=== PATIENT | male | born 1965 | race African-American/Black ===

== ENCOUNTER 2016-11-30 09:19 | Emergency (ER) | payer BC ==
[2016-11-30 09:26] VITALS: BMI 27.8
[2016-11-30 09:30] VITALS: RESP 18; TEMP 98.1; O2SAT 98
[2016-11-30] MEDS ORDERED: Naproxen 550 mg Tab PO STA (09:42)
--- NOTE | 2016-11-30 09:55 | ED PDOC ---
Arrival/HPI - General Historian: Patient - History of Present Illness Time/Duration: 1-3 hours Symptom Onset: Sudden Symptom Course: Worsening Quality: Aching Context: Work - General Chief Complaint: Lower Extremity Problem/Injury Time Seen by Provider: 11/30/16 09:20 - History of Present Illness Narrative History of Present Illness (Text): 11/30/16 09:51 Patient is a 51 y/o with pmh of hld presenting with right distal quadriceps pain. Patient states he has chronic right knee pain, had x-ray in the past but never followed up for result, saw orthopedic was told he didn't need surgery. Patient states he is active, exercised this morning. 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 Patient states he all the sudden started to limp. Denies hearing any popping sound, denies fever, chills, n/v/d, denies cp or sob, denies prior history of lower extremities trauma. Patient states he recently started playing basketball, and played yesterday, but denies pain during the game. (Liz Stein) Past Medical History - Provider Review Nursing Documentation Reviewed: Yes - Travel History Have you recently traveled outside [place] w/in the past 3 mons?: No - Cardiac Hx Cardiac Disorders: Yes - Psychiatric Hx Substance Use: No Family/Social History - Physician Review Nursing Documentation Reviewed: Yes Family/Social History: No Known Family HX Smoking Status: Never Smoked Hx Alcohol Use: No Hx Substance Use: No Allergies/Home Meds Allergies/Adverse Reactions: Allergies No Known Allergies Allergy (Verified 11/30/16 09:25) Home Medications: Home Meds Medication Instructions Recorded Confirmed No Known Home Med 11/30/16 11/30/16 Review of Systems - Review of Systems Constitutional: Normal Eyes: Normal ENT: Normal Respiratory: Normal Cardiovascular: Normal Gastrointestinal: Normal Genitourinary Male: Normal Musculoskeletal: Other (right distal quad pain. ) Skin: Normal Neurological: Normal Endocrine: Normal Hemo/Lymphatic: Normal Psychiatric: Normal Physical Exam Vital Signs Reviewed: Yes Temperature: Afebrile Blood Pressure: Normal Pulse: Regular Respiratory Rate: Normal Appearance: Positive for: Well-Appearing, Non-Toxic, Comfortable Pain Distress: Moderate Mental Status: Positive for: Alert and Oriented X 3 - Systems Exam Head: Present: Atraumatic, Normocephalic Mouth: Present: Moist Mucous Membranes Neck: Present: Normal Range of Motion, Trachea Midline. No: MIDLINE TENDERNESS , Paraspinal Tenderness Respiratory/Chest: Present: Clear to Auscultation, Good Air Exchange. No: Respiratory Distress, Accessory Muscle Use, Wheezes, Rales, Retracting, Rhonchi , Tachypneic Cardiovascular: Present: Regular Rate and Rhythm, Normal S1, S2. No: Murmurs, Tachycardic, Bradycardic, Rub, Gallop Abdomen: Present: Tenderness, Normal Bowel Sounds. No: Distention Upper Extremity: Present: Normal Inspection. No: Cyanosis, Edema Lower Extremity: Present: NORMAL PULSES, Tenderness (insertion point of the right vastus ), Swelling (above the patella.), Deformity (atrophied quad muscles), Other (right knee and distal thigh feels warm, preserved hamstring muscle mass, able to postion leg 45 degrees, inability to flex knee past 45 degrees, and inability to extend it due to pain. ). No: CALF TENDERNESS Neurological: Present: GCS=15 Skin: Present: Warm, Dry, Normal Color Psychiatric: Present: Alert, Oriented x 3, Normal Insight, Normal Concentration Medical Decision Making Re-evaluation Time: 11:20 Reassessment Condition: Re-examined, Improving,but remains with symptoms ED Course and Treatment: 11/30/16 10:04 51 y/o with right distal quadriceps tenderness, and swelling. Differentials: quadriceps tendinitis, versus patellofemoral pain versus quadriceps tendon rupture versus muscle strain. Plan: x-ray of the right knee, and femur toradol for pain and reevaluate Discussed with Dr So. 11/30/16 11:21 Patient is back from x-ray, patient is able to move his extremities now, but still in pain. Percocet ordered. 11/30/16 11:45 Dr So spoke to Dr Salmon, recommended patient be discharged from the ED, and follow up in his office today. Cherelle band applied and crotches provided. ( Liz Stein) I spoke w Dr Salmon- the pt can proceed directly to his office to be seen today. (Leonard So) - RAD Interpretation Radiology Orders: 11/30/16 09:48 KNEE W PATELLA RIGHT 3 VIEW [RAD] Stat - Medication Orders Current Medication Orders: Discontinued Medications Ketorolac Tromethamine (Toradol) 30 mg IVP STAT STA Stop: 11/30/16 09:55 Last Admin: 11/30/16 10:08 Dose: 30 mg Re-Assess: JEREMY Pain Assessment Document 11/30/16 11:08 [facility] (Rec: 11/30/16 11:38 [id number]) Pain Reassessment Is this a pain reassessment? No Oxycodone/Acetaminophen (Percocet 5/325 Mg Tab) 1 tab PO STAT STA Stop: 11/30/16 11:27 Last Admin: 11/30/16 11:37 Dose: 1 tab Disposition/Present on Arrival - Present on Arrival Any Indicators Present on Arrival: No History of DVT/PE: No History of Uncontrolled Diabetes: No Urinary Catheter: No History of Decub. Ulcer: No History Surgical Site Infection Following: None - Disposition Have Diagnosis and Disposition been Completed?: Yes Disposition Time: 11:30 Patient Plan: Discharge - Disposition Diagnosis: Knee pain Disposition: HOME/ ROUTINE Condition: STABLE Additional Instructions: Please go directly to the orthopedic surgeon's office to be seen today. Tell the front office manager that the ED physician spoke with Dr Salmon. Return to the ER for any worsening symptoms or for any other concerns. Referrals: Jag Salmon III, MD [Medical Doctor] - Follow up with primary Forms: WORK NOTE
[2016-11-30 11:06] VITALS: BP 137/85; PULSE 68
[2016-11-30] MEDS ORDERED: Oxycodone/Acetaminophen 5/325 mg Tab PO STA (11:26)
--- NOTE | 2016-11-30 12:04 | RAD ---
PROCEDURE: Right Knee Radiographs. HISTORY: quadriceps tendon pain COMPARISON: None. FINDINGS: BONES: Normal. No fracture. JOINTS: Joint space narrowing in the medial compartment. JOINT EFFUSION: Moderate to large joint effusion OTHER FINDINGS: None. IMPRESSION: Moderate to large joint effusion
== END 2016-11-30 11:30 | disposition home or self-care (01) ==
LOC: ED 09:19
DX: M25.561 Pain in right knee (principal)
CPT/HCPCS: 73562; 96374; 99284; J1885

== ENCOUNTER 2017-04-04 17:25 | Emergency (ER) | payer BC ==
[2017-04-04 17:25] VITALS: BMI 27.8
[2017-04-04] MEDS ORDERED: Sodium Chloride 0.9% 1,000 ML IV ONE (17:38)
[2017-04-04 17:47] VITALS: BP 131/75; PULSE 61; RESP 16; TEMP 97.9; O2SAT 97
--- NOTE | 2017-04-04 17:50 | ED PDOC ---
Arrival/HPI - General Chief Complaint: Dizziness/Lightheaded Time Seen by Provider: 04/04/17 17:30 Historian: Patient, Spouse - History of Present Illness Narrative History of Present Illness (Text): 04/04/17 17:47 51 yo male with h/o HCL, presents to the ED c/o dizziness of sudden onset at 4pm. He was getting up from bed from rest and then started getting very dizzy. He stood up and fell backwards to the ground. He caught his fall and had no injuries. He denies any headache or any pain. No lightheadedness. No CP, SOB, Abdominal Pain or back pain. No melena or hematachezia. No h/o anemia. No unilateral weakness or numbness. No trouble speaking or visual changes. Patient is on a Keto diet for months now but no change in diet recently. No URI symptoms. No cough. No fever, chills, or bodyaches. Past Medical History - Provider Review Nursing Documentation Reviewed: Yes - Cardiac Hx Cardiac Disorders: Yes - Pulmonary Hx Respiratory Disorders: No - Neurological Hx Neurological Disorder: No - HEENT Hx HEENT Disorder: No - Renal Hx Renal Disorder: No - Endocrine/Metabolic Hx Endocrine Disorders: No - Hematological/Oncological Hx Blood Disorders: No - Integumentary Hx Dermatological Disorder: No - Musculoskeletal/Rheumatological Hx Musculoskeletal Disorders: No - Gastrointestinal Hx Gastrointestinal Disorders: No - Genitourinary/Gynecological Hx Genitourinary Disorders: No - Psychiatric Hx Psychophysiologic Disorder: No Hx Substance Use: No - Surgical History Hx Orthopedic Surgery: Yes (knee) Family/Social History - Physician Review Nursing Documentation Reviewed: Yes Family/Social History: No Known Family HX Smoking Status: Never Smoked Hx Alcohol Use: No Hx Substance Use: No Allergies/Home Meds Allergies/Adverse Reactions: Allergies No Known Allergies Allergy (Verified 04/04/17 17:27) Home Medications: Home Meds Medication Instructions Recorded Confirmed No Known Home Med 11/30/16 04/04/17 Review of Systems - Physician Review All systems were reviewed & negative as marked: Yes - Review of Systems Constitutional: Normal Eyes: Normal ENT: Normal Respiratory: Normal Cardiovascular: Normal Gastrointestinal: Nausea, Vomiting. absent: Abdominal Pain, Stool Changes, Constipation, Diarrhea, Appetite Changes, Hematochezia, Hematemesis Genitourinary Male: Normal Musculoskeletal: Normal Skin: Normal Neurological: Dizziness. absent: Headache, Focal Weakness, Gait Changes, Speech Changes, Facial Droop Endocrine: Normal Hemo/Lymphatic: Normal Psychiatric: Normal Physical Exam Vital Signs Reviewed: Yes Vital Signs Temp Pulse Resp BP Pulse Ox 04/04/17 17:40 97.9 F 61 16 131/75 97 Temperature: Afebrile Blood Pressure: Normal Pulse: Regular Respiratory Rate: Normal Appearance: Positive for: Well-Appearing, Non-Toxic, Comfortable Pain Distress: None Mental Status: Positive for: Alert and Oriented X 3 Finger Stick Blood Glucose: 138 - Systems Exam Head: Present: Atraumatic, Normocephalic Pupils: Present: PERRL Extroacular Muscles: Present: EOMI Conjunctiva: Present: Normal Ears: Present: Normal, NORMAL TM Mouth: Present: Moist Mucous Membranes Pharnyx: Present: Normal Neck: Present: Normal Range of Motion. No: MIDLINE TENDERNESS, Paraspinal Tenderness, JVD, Bruit Respiratory/Chest: Present: Clear to Auscultation, Good Air Exchange. No: Respiratory Distress, Accessory Muscle Use Cardiovascular: Present: Regular Rate and Rhythm, Normal S1, S2. No: Murmurs Abdomen: Present: Normal Bowel Sounds. No: Tenderness, Distention, Peritoneal Signs Back: Present: Normal Inspection Upper Extremity: Present: Normal Inspection. No: Cyanosis, Edema Lower Extremity: Present: Normal Inspection. No: Edema Neurological: Present: GCS=15, CN II-XII Intact, Speech Normal, Motor Func Grossly Intact, Normal Sensory Function, Norm Deep Tendon Reflexes, Other (No nystagmus; +hallpikes) Skin: Present: Warm, Dry, Normal Color. No: Rashes Psychiatric: Present: Alert, Oriented x 3, Normal Insight, Normal Concentration Medical Decision Making ED Course and Treatment: 04/04/17 17:51 51 yo male with dizziness most likely BPV r/o arrythmia, r/o anemia, r/o electrolyte abnormalities -- Labs -- EKG -- Finger Stick, Orthostatics -- Reglan and Meclizine -- Reevaluate and disposition 04/04/17 17:52 EKG: NSR at [address] elevations, nl intervals 04/04/17 19:07 Zofran IV ordered for nausea. Signed out to Dr. Farias to reevaluate and disposition. - Lab Interpretations Lab Results: 04/04/17 17:35 04/04/17 17:35 Lab Results 04/04/17 17:35: Sodium 141, Potassium 3.5 L, Chloride 105, Carbon Dioxide 22, Anion Gap 18, BUN 18, Creatinine 1.0, Est GFR ( Amer) > 60, Est GFR (Non- Af Amer) > 60, Random Glucose 152 H, Calcium 9.6, Magnesium 2.1 04/04/17 17:35: WBC 9.9, RBC 4.93, Hgb 15.8, Hct 46.0, MCV 93.3, MCH 32.0, MCHC 34.3, RDW 13.3, Plt Count 210, MPV 10.5, Gran % 52.3, Lymph % (Auto) 40.9 H, Stone % (Auto) 5.7, Eos % (Auto) 0.8 L, Baso % (Auto) 0.3, Gran # 5.16, Lymph # 4.0 H, Stone # 0.6, Eos # 0.1, Baso # 0.03 I have reviewed the lab results: Yes - Medication Orders Current Medication Orders: Sodium Chloride (Sodium Chloride 0.9%) 1,000 mls @ 250 mls/hr IV .Q4H ONE Stop: 04/04/17 21:37 Last Admin: 04/04/17 17:52 Dose: 250 mls/hr eMAR Start Stop Document 04/04/17 17:52 MS (Rec: 04/04/17 17:52 MS [id number]) Intravenous Solution Start Date 04/04/17 Start Time 17:52 Discontinued Medications Meclizine HCl (Antivert) 25 mg PO STAT STA Stop: 04/04/17 17:38 Last Admin: 04/04/17 18:18 Dose: 25 mg Metoclopramide HCl (Reglan) 10 mg IVP STAT STA Stop: 04/04/17 17:38 Last Admin: 04/04/17 17:52 Dose: 10 mg IVP Administration Document 04/04/17 17:52 MS (Rec: 04/04/17 17:52 MS [id number]) Charges for Administration # of IVP Administrations 1 Potassium Chloride (K-Dur 20 Meq Er Tab) 40 meq PO STAT STA Stop: 04/04/17 18:15 Disposition/Present on Arrival - Present on Arrival Any Indicators Present on Arrival: No History of DVT/PE: No History of Uncontrolled Diabetes: No Urinary Catheter: No History of Decub. Ulcer: No History Surgical Site Infection Following: None - Disposition Have Diagnosis and Disposition been Completed?: Yes Diagnosis: Dizziness Disposition Time: 19:07 Patient Problems: Current Active Problems Problem Status Onset Dizziness Acute Condition: IMPROVED Forms: [employer] ([place])
[2017-04-04 18:02] LABS: BASO # 0.03 K/mm3 (0.0-2.0); BASO % 0.3 % (0.0-3.0); EOS # 0.1 (0.0-0.7); EOS % 0.8 % (1.5-5.0); GRAN # 5.16 (1.4-6.5); GRAN % 52.3 % (50.0-68.0); LYMPH % 40.9 % (22.0-35.0); MEAN CELL VOLUME 93.3 fl (80.0-105.0); MEAN CORPUSCULAR HGB CONC 34.3 g/dl (31.0-37.0); MEAN PLATELET VOLUME 10.5 fl (7.0-11.0); MONO # 0.6 (0.1-0.6); MONO % 5.7 % (1.0-6.0); RED CELL DISTRIBUTION WIDTH 13.3 % (11.5-14.5); WHITE BLOOD COUNT 9.9 10^3/ul (4.5-11.0)
[2017-04-04 18:10] LABS: BLOOD UREA NITROGEN 18 mg/dL (7-21); CALCIUM 9.6 mg/dL (8.4-10.5); CARBON DIOXIDE 22 mmol/L (21-33); CHLORIDE 105 mmol/L (98-107); GFR AFRICAN-AMERICAN > 60; GLUCOSE,RANDOM 152 mg/dL (70-110); MAGNESIUM 2.1 mg/dL (1.7-2.2); POTASSIUM 3.5 mmol/L (3.6-5.0); SODIUM 141 mmol/L (132-148)
[2017-04-04] MEDS ORDERED: Potassium Chloride 20 mEq ER Tab PO STA (18:14)
--- NOTE | 2017-04-05 22:26 | CARD ---
APPROVED REPORT EKG Measurement Heart [id number] <Conclusion> Normal sinus rhythm Normal ECG
== END 2017-04-04 20:57 | disposition home or self-care (01) ==
LOC: ED 17:25
DX: R42 Dizziness and giddiness (principal)
CPT/HCPCS: 80048; 83735; 85025; 93005; 96374; 96375; 99285; J2405; J2765; J7040